=== PATIENT | female | born 1930 | race Caucasian/White ===

== ENCOUNTER → 2016-04-27 | Outpatient (CLI) | payer MEDICARE, BC ==
[~2016-04-27] MED LIST: ASA CHILDREN'S81 MG PO; CALTRATE-600 W600 MG PO; COLACE-DPS100 MG PO; NORCO 5-325 TA1 EACH PO; NORVASC5 MG PO; TENORMIN DPS50 MG PO; THERA1 EACH PO
== END | disposition home or self-care (01) ==
LOC: RAD.S 04-14 10:10
DX: Z12.31 Encounter for screening mammogram for malignant neoplasm of breast (principal); Z13.820 Encounter for screening for osteoporosis; R63.4 Abnormal weight loss; M85.88 Other specified disorders of bone density and structure, other site

== ENCOUNTER → 2016-07-20 | Outpatient (CLI) | payer MEDICARE, BC | END | disposition home or self-care (01) | LOC: PTH.S 08:13 | DX: Z01.818 Encounter for other preprocedural examination (principal); I10 Essential (primary) hypertension ==

== ENCOUNTER 2016-07-27 05:26 | Inpatient (IN) | payer MEDICARE, BC ==
[~2016-07-27] VITALS: Ht 167.6 cm; Wt 82.4 kg
[2016-07-30] MEDS ORDERED: TENORMIN DPS50 MG PO (18:29)
[2016-07-30] MEDS ORDERED: CALTRATE-600 W600 MG PO (18:30)
[2016-07-30] MEDS ORDERED: ASA CHILDREN'S81 MG PO (18:30)
[2016-07-30] MEDS ORDERED: THERA1 EACH PO (18:30)
[2016-07-30] MEDS ORDERED: COLACE-DPS100 MG PO (18:30)
[2016-07-30] MEDS ORDERED: NORCO 5-325 TA1 EACH PO (18:31)
[2016-07-30] MEDS ORDERED: NORVASC5 MG PO (18:31)
--- NOTE | 2016-08-01 19:20 | OR ---
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 POSTOPERATIVE DIAGNOSES: 1. 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 2. Mass at the inferior aspect of the pancreas. PROCEDURE: Laparoscopic right hemicolectomy as well as excision of this 5 cm x 3 cm cystic pancreatic mass. FOREIGN BROADCAST SPECIALIST: Luis Carrillo MD. ANESTHESIA: General endotracheal tube anesthesia. ESTIMATED BLOOD LOSS: 100 mL or less. INDICATION FOR PROCEDURE: Please see H and P. PROCEDURE IN DETAIL: After the risks, benefits, possible complications, and alternatives have been explained and informed consent had been obtained, the patient was taken back to the operating room, underwent general endotracheal tube anesthesia, and the surgical field was prepped and draped in a sterile manner. An incision was made supraumbilically in the midline. The Veress needle was inserted. The abdomen was insufflated with CO2. Then placed a 5 mm port here, lower midline 5 mm port and another port in the epigastric region 5 mm. First inspecting things, you can see in the picture, I could see the blue dye nicely at the kind of proximal transverse colon, a little ways away from the hepatic flexure but not to the middle colic area. Raised up the ileocolic vessel, could identify the duodenum quite nicely. Scored around the in ileocolic vessel, made a window and came across the 2.5 mm stapler. Then took some of the greater omentum off, got into the lesser sac and took that off the transverse colon all way up around taking down the hepatic flexure. It was really pretty closely stuck up to the liver but this was away from the lesion that was marked with the ink from colonoscopy done previously. Then went down and worked the cecum up and just kept kind of coming from above and below until we had everything all freed up in the right colon. I did end up taking the right branch of the middle colic up, coming up through the transverse colon as well. Then before I brought the specimen out, there was this lesion that they have been looking at on CT scan that we were able to see because we were already in the lesser sac from taking the omentum off the transverse colon coming up close to below the stomach. So using the Harmonic Scalpel, we just kind of slowly dissecting around this and this appears benign. There is no real adherence to anything, kind of a cystic type structure and we dissected up right to where we were getting to pancreatic tissue and at this point, we kind of stopped laparoscopically and I was unsure whether I was going to try taking this or not. If we could look at this open ADMIT: 07/27/2016 RM/LOC: 526 [facility] MR#: [id number] [address] [address] [facility] [address] [place] [id number] Operative/Delivery Room Report SEX: F AGE: 86 : 1930 we would. So at this point, then made a midline incision in between my 2 upper 5 mm ports. Wound protector was placed. We brought the colon up and did our right colon resection. Clamped, divided, and ligated some mesenteric vessels up to the transverse colon as well as the distal ileum and then came across each proximal end of proximal small bowel and the distal transverse colon with the ROSI 75 stapler. I created a [id number] stapled anastomosis using the same and closed it off the ROSI stapler. I reinforced the crotch of the anastomosis with 3-0 GI silk. Ended up reinforcing the staple lines in a couple places with some 3-0 GI silk. Appeared to have a nice, open, patent anastomosis. There was good hemostasis. It was returned to the abdominal cavity. We changed gloves, and then actually where our incision was, we were right on top of this spot and we could see this cystic lesion from the pancreas. So, we went ahead and using Harmonic Scalpel slowly removed this in its entirety. Wyatt like we got around the whole thing. It was just right at the inferior edge of pancreatic tissue. We never saw any significant duct or fluid or leaking. Once that was done, we did kind of over sew a little bit of this tissue around this, kind of closing this area up again with a 3-0 GI silk. There was good hemostasis. Irrigated out a little bit, cleaned it up. I then closed the midline incision with a running #1 PDS superiorly and inferiorly, tying in the middle. Re-insufflated the abdomen and inspected everything and everything appeared dry. Every bowel looked healthy. We then injected 0.5% Marcaine for pain control into these incision sites. We then closed the large port site on the left side of her abdomen, 10 mm one with an 0 Polysorb suture using the suture passer. All the ports were removed and much CO2 as possible. The skin was closed with milan. Tolerated well, was extubated, taken to recovery room in stable and satisfactory condition. Joseph Perez MD/ oc JOB #: [id number] CC: Joseph Perez, Attending Physician Cheng Bowie, Family Physician
--- NOTE | 2016-08-27 11:47 | DS ---
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 DISMISSAL DIAGNOSES: 1. Invasive adenocarcinoma of the right colon. Negative for metastatic disease. 2. Mucinous pancreatic cyst. 3. Hypertension. 4. History of colon polyps. 5. Previous hysterectomy. PROCEDURES: Laparoscopic right hemicolectomy as well as excision of pancreatic mass. HOSPITAL COURSE: The patient was an inpatient admit with routine med/surg orders. After surgery, the patient transferred to the floor without any complications. She was given a morphine MEDICAL OFFICE RECEPTIONIST ASSISTANT for pain control and was started on sips of clears for her diet. Dr. Bowie was notified to help in the medical management of this case. Overall, the patient recovered well while in the hospital. Her pain was controlled so she was weaned off her morphine MEDICAL OFFICE RECEPTIONIST ASSISTANT and was tolerating oral pain medications. She tolerated an advanced diet and had normal return of her bowel function. She was ambulating, her vitals remained stable, and her lab work normalized. A Sanders that was placed intraoperatively was pulled on postop day #2. The patient continued to recover well and was able to discharge to home on 07/30/2016. She discharged to home with Home Health Care. DISCHARGE INSTRUCTIONS: 1. Low-fiber diet. 2. Okay to shower. 3. Home Health Care. ADMIT: 07/27/2016 RM/LOC: 531 [facility] MR#: [id number] [address] [place] [address], [place] [id number] [facility] [address] [place] [address] Discharge Summary SEX: F AGE: 86 : 1930 FOLLOW UP: 1. No Aguiar PA-C, her primary care provider on August 05. 2. Follow up with Dr. Perez on , August 05. DISCHARGE MEDICATION LIST: 1. Atenolol 50 mg daily. 2. Multivitamin daily. 3. Caltrate Plus D3 600 mg b.i.d. 4. Aspirin 81 mg at bedtime. 5. Docusate sodium 100 mg daily. 6. Norvasc 5 mg daily. 7. Hydrocodone/acetaminophen 5/325 one to two tabs q.4 hours p.r.n. SAMAN Mcfarlane / Joseph Perez MD / ajf JOB #: [id number] CC: Joseph Perez MD, Attending Physician Cheng Bowie MD, Family Physician
== END 2016-07-30 16:46 | disposition home health service (06) | DRG 330 ==
LOC: WOR 05:26 → 5MS 05:26
PROVIDERS: ADMIT Surgery
PROC: 0DTF4ZZ Resection of Right Large Intestine, Percutaneous Endoscopic Approach (ICD-10-PCS; principal; 2016-07-27)
PROC: 0FBG4ZZ Excision of Pancreas, Percutaneous Endoscopic Approach (ICD-10-PCS; principal; 2016-07-27)
DX: C18.4 Malignant neoplasm of transverse colon (principal); E87.1 Hypo-osmolality and hyponatremia; I10 Essential (primary) hypertension; K86.9 Disease of pancreas, unspecified; E87.6 Hypokalemia; Z86.010 Personal history of colon polyps; Z79.82 Long term (current) use of aspirin